=== PATIENT | male | born 1990 | race Caucasian/White ===

== ENCOUNTER 2017-11-03 09:10 | Emergency (ER) | payer BC ==
[2017-11-03 09:53] VITALS: BP 138/70
--- NOTE | 2017-11-03 10:29 | ED ---
Throat Pain/Nasal Congestion - HPI Summary HPI Summary: 27 yo WM c/o right ear pain associated with URI sx that worsened over this past week, mild f/c - History of Current Complaint Chief Complaint: UCEar Time Seen by Provider: 11/03/17 10:08 Hx Obtained From: Patient Onset/Duration: Gradual Onset, Lasting Days Severity: Moderate Cough: Nonproductive - Allergies/Home Medications Allergies/Adverse Reactions: Allergies Allergy/AdvReac Type Severity Reaction Status Date / Time Penicillins Allergy Rash Verified 11/03/17 09:47 Home Medications: Home Medications Acetaminophen TAB* [Tylenol TAB*] 650 mg PO Q4H PRN 11/03/17 [History Confirmed 11/03/17] Ibuprofen TAB* [Advil TAB*] 400 mg PO Q6H PRN 11/03/17 [History Confirmed ] PMH/Surg Hx/FS Hx/Imm Hx Previously Healthy: Yes Respiratory History: Reports: Hx Asthma Infectious Disease History: No Infectious Disease History: Denies: Traveled Outside the [place] in Last 30 Days - Family History Known Family History: Positive: Diabetes - Social History Alcohol Use: Occasionally Substance Use Type: Reports: None Smoking Status (MU): Never Smoked Tobacco Review of Systems Positive: Fever, Fatigue Eyes: Negative Positive: Ear Ache Cardiovascular: Negative Respiratory: Negative Gastrointestinal: Negative Musculoskeletal: Negative Positive: Headache Psychological: Normal All Other Systems Reviewed And Are Negative: Yes Physical Exam Triage Information Reviewed: Yes Vital Signs On Initial Exam: Initial Vitals Temp Pulse Resp BP Pulse Ox 36.6 C 84 16 138/70 100 11/03/17 09:45 11/03/17 09:45 11/03/17 09:45 11/03/17 09:45 11/03/17 09:45 Vital Signs Reviewed: Yes Appearance: Positive: No Pain Distress Skin: Positive: Warm ENT: Positive: Hearing grossly normal, TM bulging, TM red - right. Negative: Tonsillar swelling, Tonsillar exudate Neck: Positive: Supple Respiratory/Lung Sounds: Positive: Clear to Auscultation Cardiovascular: Positive: Normal, S1, S2 Abdomen Description: Positive: Nontender Musculoskeletal: Positive: Normal Neurological: Positive: Normal, CN Intact II-III Psychiatric: Positive: Normal AVPU Assessment: Alert Diagnostics - Vital Signs Vital Signs Temp Pulse Resp BP Pulse Ox 11/03/17 09:45 36.6 C 84 16 138/70 100 - Laboratory Lab Statement: Any lab studies that have been ordered have been reviewed, and results considered in the medical decision making process. EENT Course/Dx - Differential Diagnoses Differential Diagnoses: Otitis Media - Diagnoses Provider Diagnoses: Right otitis media Discharge - Sign-Out/Discharge Documenting (check all that apply): Discharge/Admit/Transfer - Discharge Plan Condition: Stable Disposition: HOME Prescriptions: Cefuroxime 500 MG(NF) 500 mg PO BID 7 Days #1 tab Patient Education Materials: Ear Infection (ED) Referrals: Daniel Levine DO [Primary Care Provider] - - Billing Disposition and Condition Condition: STABLE Disposition: HOME
== END 2017-11-03 10:29 | disposition home or self-care (01) ==
LOC: UCCORT 09:10
DX: H66.91 Otitis media, unspecified, right ear (principal); Z88.0 Allergy status to penicillin
CPT/HCPCS: 99212; G0463

== ENCOUNTER 2019-07-26 16:20 | Emergency (ER) | payer BC, OTHER ==
[2019-07-26 17:00] VITALS: BP 141/80
--- NOTE | 2019-07-26 17:23 | UC ---
Ear Complaint HPI - HPI Summary HPI Summary: patient had flu symps for past 4-5 days (family members tested pos for flu B). he feels better overall except for L ear pain that started today has taken no meds - History of Current Complaint Chief Complaint: UCEar Stated Complaint: EARACHE Time Seen by Provider: 07/26/19 17:12 Hx Obtained From: Patient Onset/Duration: Gradual Onset Severity Initially: Mild Severity Currently: Mild Pain Intensity: 3 - Allergies/Home Medications Allergies/Adverse Reactions: Allergies Allergy/AdvReac Type Severity Reaction Status Date / Time Penicillins Allergy Rash Verified 07/26/19 17:00 PMH/Surg Hx/FS Hx/Imm Hx Previously Healthy: Yes - Surgical History Surgical History: None - Family History Known Family History: Positive: Diabetes - Social History Occupation: Works From/At Home Lives: With Family Alcohol Use: Occasionally Substance Use Type: None Smoking Status (MU): Never Smoked Tobacco Review of Systems All Other Systems Reviewed And Are Negative: Yes Constitutional: Positive: Negative Skin: Positive: Negative ENT: Positive: Ear Ache Respiratory: Positive: Negative Cardiovascular: Positive: Negative Neurological/Mental Status: Positive: Negative. Negative: Headache Psychological: Positive: Negative Is Patient Immunocompromised?: No Physical Exam Triage Information Reviewed: Yes Appearance: Well-Appearing, No Pain Distress, Well-Nourished Vital Signs: Initial Vital Signs Temp 97.3 F 07/26/19 16:58 Pulse 78 07/26/19 16:58 Resp 12 07/26/19 16:58 BP 141/80 07/26/19 16:58 Pulse Ox 99 07/26/19 16:58 Vital Signs Reviewed: Yes Eyes: Positive: Conjunctiva Clear ENT: Positive: TM dull, TM red - L TM. R TM normal Neck exam: Normal Neck: Positive: Supple, Nontender, No Lymphadenopathy Respiratory Exam: Normal Respiratory: Positive: Lungs clear Cardiovascular Exam: Normal Cardiovascular: Positive: RRR Neurological Exam: Normal Psychological Exam: Normal Skin Exam: Normal Ear Complaint Course/Dx - Differential Dx/Diagnosis Differential Diagnosis/HQI/PQRI: Cerumen Impaction, Otitis Externa, Otitis Media , URI Provider Diagnosis: Otitis media Discharge ED - Sign-Out/Discharge Documenting (check all that apply): Patient Departure All imaging exams completed and their final reports reviewed: No Studies - Discharge Plan Condition: Good Disposition: HOME Prescriptions: Azithromycin TAB* [Zithromax TAB (Z-AMBER) 250 mg #6 tabs] 2 tab PO .TODAY, THEN 1 DAILY #1 amber Patient Education Materials: Ear Infection (ED) Referrals: Daniel Levine DO [Primary Care Provider] - 3 Days (if not improving) Additional Instructions: start antibiotic (zithromax) adn take as directed use ibuprofen or Tylenol as directed for pain - Billing Disposition and Condition Condition: GOOD Disposition: Home
== END 2019-07-26 17:40 | disposition home or self-care (01) ==
LOC: UCEAST 16:20
DX: H66.92 Otitis media, unspecified, left ear (principal); Z88.0 Allergy status to penicillin
CPT/HCPCS: 99212; G0463